=== PATIENT | female | born 1930 | race Caucasian/White ===

== ENCOUNTER 2016-11-18 14:59 | Inpatient (IN) ==
[2016-11-18] MEDS ORDERED: NS 1,000 ML IV ONE (15:14)
--- NOTE | 2016-11-18 15:30 | Diag Imaging Result Document ---
PROCEDURE NAME: HEAD W/O CONTRAST - 11/18/2016 CT OF THE HEAD: A CT dose reduction protocol was used. COMPARISON: 11/30/2015. FINDINGS: There is a new large area of encephalomalacia involving the entire right anterior cerebral artery territory compatible with a chronic infarction here. There is also worsening periventricular white matter chronic microvascular disease throughout the cerebral hemispheres. No intracranial mass or hemorrhage. Stable small lacune in the left thalamus. The skull is intact. The sinuses, mastoids, and middle ears are clear. IMPRESSION: 1. Worsening old stroke burden. 2. No acute abnormality. [facility]
[2016-11-18 15:32] LABS: ALLEN TEST YES; BLOOD TYPE ARTERIAL; DRAW SITE R RADIAL; METHB 1.2 % (0.0-1.5); O2(CT) 19.4 mL/dL (15.0-23.0); PCO2(98.6) 38 mmHg (35-45); PO2(98.6) 118 mmHg (60-100); SAMPLE BLOOD; SAO2 99.3 % (95.0-100.0); THB 14.2 g/dL (11.5-17.4); pH(98.6) 7.43 (7.35-7.45)
[2016-11-18 15:34] LABS: MODALITY CANNULA
[2016-11-18 16:10] LABS: MANUAL DIFF NEEDED? NO
[2016-11-18 16:15] LABS: BASO% 0.4 % (0.0-0.8); EOS# 0.72 X1000 (0.0-0.7); EOS% 5.8 % (0.0-10.0); HEMATOCRIT 40.3 % (37.0-47.0); HEMOGLOBIN 13.5 g/dL (12.0-16.0); IMM GRAN# 0.07 X1000 (0.0-0.04); IMM GRAN% 0.6 % (0.0-0.5); LYMPH# 2.46 X1000 (1.2-3.4); LYMPH% 19.8 % (20.5-51.1); MCHC 33.5 g/dL (33-37); MCV 92.6 FL (81-99); MONO# 1.01 X1000 (0.11-0.59); MONO% 8.1 % (1.7-9.3); MPV 11.6 FL (7.4-10.4); NEUT% 65.3 % (42.2-75.2); PLT 208 X1000 (130-400); RBC 4.35 XMIL (4.2-5.4)
[2016-11-18 16:25] LABS: PTT 25.2 Seconds (22.0-36.0)
[2016-11-18 16:34] LABS: INR 1.03; PROTIME 10.8 Seconds (9.2-11.7)
[2016-11-18 16:43] LABS: ALBUMIN 3.7 g/dL (3.5-5.0); CALCIUM 9.3 mg/dL (8.8-10.2); POTASSIUM 4.5 mmol/L (3.5-5.1); TOTAL BILIRUBIN 0.19 mg/dL (0.20-1.00); TOTAL PROTEIN 7.2 g/dL (6.3-8.3)
[2016-11-18 16:53] LABS: URINE MICRO REVIEW NEEDED? NO; URINE SOURCE CATH
--- NOTE | 2016-11-18 16:54 | Diag Imaging Result Document ---
PROCEDURE NAME: CHEST-PORTABLE - 11/18/2016 PORTABLE CHEST AT 1600 HOURS: FINDINGS: There is a left upper lobe granuloma. There is apical pleural scarring, particularly on the left. The inspiration is better than on 06/23/2016. There may be minimal lingular atelectasis. IMPRESSION: Improved inspiration. Minimal atelectasis.
[2016-11-18 17:03] LABS: BILIRUBIN URINE NEGATIVE (NEGATIVE); BLOOD URINE MODERATE (NEGATIVE); COLOR ORANGE; GLUCOSE URINE >1000 mg/dL (NEGATIVE); LEUKOCYTES URINE MODERATE (NEGATIVE); NITRITE URINE POSITIVE (NEGATIVE); PROTEIN URINE 100 mg/dL (NEGATIVE); SP GRAVITY URINE 1.021; TURBIDITY URINE HAZY (CLEAR); UROBILINOGEN URINE NORMAL (NORMAL)
[2016-11-18 17:05] LABS: UR EPITHELIAL CELLS <10 /HPF (<10); URINE BACTERIA 4+ /HPF; URINE CULTURE NEEDED? YES; URINE RBC TNTC /HPF (<10); URINE WBC TNTC /HPF (<10)
[2016-11-18] MEDS ORDERED: ROCEPHIN 1 GM/NS 1 GM/50 ML IVPB IV ONE (17:11)
--- NOTE | 2016-11-18 17:13 | PROVIDER DOCUMENTATION ---
This chart was entered by Tien Jennings Scribe, acting as scribe for Alverto Smart MD. HPI-Neurological Disorder - General Chief Complaint: Stroke-Like Symptoms Stated Complaint: STROKE LIKE SX Time Seen by Provider: 11/18/16 15:13 Source: family, EMS Allergies/Adverse Reactions: Patient Allergies Allergy/AdvReac Type Severity Reaction Status Date / Time No Known Allergies Allergy Verified 06/18/16 16:41 Home Medications: Home Medication List Medication Instructions Recorded Confirmed Last Taken Type Pravastatin Sodium 40 mg PO HS 03/06/12 06/18/16 06/18/16 History Acetaminophen [Tylenol] 650 mg PO Q6H PRN PRN #0 tablet 12/12/15 06/18/16 Unknown Rx Digoxin [Lanoxin] 125 microgm PO DAILY #0 tablet 12/12/15 06/18/16 06/18/16 Rx Levothyroxine [Synthroid] 100 microgm PO QAM #0 tablet 12/12/15 06/18/16 Rx Apixaban [Eliquis] 2.5 mg PO BID 04/18/16 06/18/16 06/18/16 History Losartan Potassium 50 mg PO DAILY 04/18/16 06/18/16 06/18/16 History Aspirin 81 mg PO DAILY #0 chewtab 04/22/16 06/18/16 06/18/16 Rx Ergocalciferol (Vitamin D2) 2,000 unit PO DAILY 06/18/16 06/18/16 06/18/16 History [Vitamin D2] Insulin Detemir [Levemir] 25 unit SQ BID 06/19/16 06/19/16 06/17/16 20:00 History Amlodipine [Norvasc] 5 mg PO DAILY #0 tablet 06/28/16 Unknown Rx Lubiprostone [Amitiza] 8 microgm PO BID #60 capsule 06/28/16 Unknown Rx Magnesium Oxide [Mag-Ox] 400 mg PO DAILY #30 tablet 06/28/16 Unknown Rx Potassium Chloride E.r. [Klor-Con] 20 meq PO DAILY #30 tablet 06/28/16 Unknown Rx - History of Present Illness-Neuro Nature of Presenting Problem: patient is a 86 y/o F that presents to the ER via EMS after being woke up from nap and family noticed she has left sided facial droop( worse then her normal). 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 No recent infection Severity: reports: moderate Onset/Duration: reports: abrupt, this afternoon (1245) Timing: reports: improving Context: reports: impaired speech, facial droop. denies: overdose, head injury Character of Altered Mental Status: reports: N/A Character of Deficits: reports: impaired speech, falling (left facial droop) Associated Symptoms: denies: headache, chest pain, fever/chills, nausea, numbness in legs/feet, vomiting Recently seen or treated by another doctor?: No Review of Systems - Adult - REVIEW OF SYSTEMS - ADULT Constitutional: denies: chills, fever Eyes: reports: no symptoms reported Ears, Nose, Mouth & Throat: denies: ear discharge, ear pain, sinus problem, throat pain, throat swelling Cardiovascular: denies: chest pain, palpitations, syncope Respiratory: denies: cough, shortness of breath, wheezing Gastrointestinal: denies: abdominal pain, nausea Genitourinary: denies: dysuria, discharge, frequency, hematuria Musculoskeletal: denies: back pain, joint pain, neck pain Integumentary: reports: no symptoms reported Neurological: reports: seizure (questionable), other (facial droop). denies: dizziness/vertigo, headache/migraines Psychiatric: reports: no symptoms reported Endocrine: reports: no symptoms reported Hematologic/Lymphatic: reports: no symptoms reported Allergic/Immunologic: reports: no symptoms reported All Other Systems: Reviewed and Negative Past History - Adult - PAST MEDICAL HISTORY-ADULT Review of Records: reports: Old Records Reviewed, Nursing Assessment Review, Medications Reviewed Cardiovascular: reports: A-Fib, HTN, hyperlipidemia Respiratory: reports: asthma Neurological: reports: CVA, stroke deficits (left sided) Endocrine/Immune: reports: Diabetes, thyroid disorder - PRIOR SURGERIES/PROCEDURES Surgical/Procedure History: reports: hysterectomy - IMMUNIZATION STATUS Childhood Immunizations: See Nurse Assessment Flu Vaccine: See Nurse Assessment - FAMILY HISTORY Family History: reviewed, not pertinent - SOCIAL HISTORY Living Situation: family Physical Exam- Neurological - Physical Exam-Neuro Initial Vital Signs Reviewed: Yes General Appearance: alert, no apparent distress Eye Exam: bilateral eye: normal inspection, PERRL HENMT: normocephalic/atraumatic, moist mucous membranes, normal ENT inspection Head Injury: no evidence of injury. negative: flap, lacerations Neck: non-tender, full range of motion, normal inspection Respiratory: lungs clear, normal breath sounds, no respiratory distress, no accessory muscle use Cardiovascular: regular rate, rhythm, no edema, no murmur Abdominal Exam: normal bowel sounds, non tender, soft, no organomegaly, no pulsatile mass Extremity: no pedal edema, no calf tenderness, normal capillary refill, pelvis stable patrol mother Exam: normal hearing, PERRL, abnormal speech (slow but does answers questions). negative: facial droop, tongue deviation to R, tongue deviation to L Motor/Sensory: positive Babinski's sign, weak motor strength LUE (previous cva) , weak motor strength LLE (previous cva). negative: sensory deficit Neurologic: motor weakness (Left sided from previous CVA). negative: aphasia, facial droop, sensory deficit Integumentary: normal color, warm/dry Psych/Mental Status: other (follows commands and answers questions). negative: anxious Progress - PLAN OF CARE/RESULTS Progress/Plan/Lab Results: Vital Signs - 8 hr 11/18/16 15:20 11/18/16 15:49 Pulse Rate 77 75 Respiratory Rate 14 20 Blood Pressure 155/83 144/67 O2 Sat by Pulse Oximetry 97 100 Laboratory Results - last 24 hr 11/18/16 11/18/16 11/18/16 15:20 15:55 15:55 WBC 12.40 H RBC 4.35 Hgb 13.5 Hct 40.3 MCV 92.6 MCH 31.0 MCHC 33.5 RDW Std Deviation 12.7 Plt Count 208 MPV 11.6 H Immature Gran % (Auto) 0.6 H Neut % (Auto) 65.3 Lymph % (Auto) 19.8 L Franklin % (Auto) 8.1 Eos % (Auto) 5.8 Baso % (Auto) 0.4 Immature Gran # (Auto) 0.07 H Neut # (Auto) 8.09 H Lymph # (Auto) 2.46 Franklin # (Auto) 1.01 H Eos # (Auto) 0.72 H Baso # (Auto) 0.05 PT INR PTT (Actin FS) Specimen Type ARTERIAL Sample Site R RADIAL pH 7.43 pCO2 38 pO2 118 H HCO3 25.7 Base Excess 1.0 Oxyhemoglobin 96.4 ABG O2 Sat (Calculated) 19.4 ABG O2 Saturation 99.3 ABG Carboxyhemoglobin 1.70 ABG Methemoglobin 1.2 Emerson Test YES A-a O2 Difference 34.0 Total Hemoglobin 14.2 Lactate 2.40 H Liter Flow 2.0 Blood Gas Modality CANNULA FiO2 % 28.0 Sodium Potassium Chloride Carbon Dioxide Anion Gap BUN Creatinine Estimated GFR/1.73 m2 BUN/Creatinine Ratio Glucose Calculated Osmolality Calcium Total Bilirubin AST ALT Alkaline Phosphatase Creatine Kinase Troponin T [id number]-[id number] Pept Total Protein Albumin Globulin Albumin/Globulin Ratio Plasma Lactate Urine Source Urine Color Urine Turbidity Urine pH Ur Specific [place] Urine Protein Ur Glucose (Stick) Ur Ketones (Stick) Urine Blood Urine Nitrite Urine Bilirubin Urobilinogen Dipstick Urine Leukocytes Urine WBC (Auto) Urine RBC (Auto) U Epithel Cells (Auto) Urine Bacteria (Auto) Plasma/Serum Ethyl Alc 11/18/16 11/18/16 11/18/16 15:55 15:55 15:55 WBC RBC Hgb Hct MCV MCH MCHC RDW Std Deviation Plt Count MPV Immature Gran % (Auto) Neut % (Auto) Lymph % (Auto) Franklin % (Auto) Eos % (Auto) Baso % (Auto) Immature Gran # (Auto) Neut # (Auto) Lymph # (Auto) Franklin # (Auto) Eos # (Auto) Baso # (Auto) PT INR PTT (Actin FS) Specimen Type Sample Site pH pCO2 pO2 HCO3 Base Excess Oxyhemoglobin ABG O2 Sat (Calculated) ABG O2 Saturation ABG Carboxyhemoglobin ABG Methemoglobin Emerson Test A-a O2 Difference Total Hemoglobin Lactate Liter Flow Blood Gas Modality FiO2 % Sodium 134 L Potassium 4.5 Chloride 96 L Carbon Dioxide 22 L Anion Gap 16 BUN 22 Creatinine 1.1 H Estimated GFR/1.73 m2 47 BUN/Creatinine Ratio 20 Glucose 349 H Calculated Osmolality 285 Calcium 9.3 Total Bilirubin 0.19 L AST 14 ALT 11 Alkaline Phosphatase 59 Creatine Kinase 88 Troponin T [id number] Pept 1269 H Total Protein 7.2 Albumin 3.7 Globulin 3.5 Albumin/Globulin Ratio 1.1 Plasma Lactate 2.7 H Urine Source Urine Color Urine Turbidity Urine pH Ur Specific [place] Urine Protein Ur Glucose (Stick) Ur Ketones (Stick) Urine Blood Urine Nitrite Urine Bilirubin Urobilinogen Dipstick Urine Leukocytes Urine WBC (Auto) Urine RBC (Auto) U Epithel Cells (Auto) Urine Bacteria (Auto) Plasma/Serum Ethyl Alc 11/18/16 11/18/16 11/18/16 15:55 15:55 16:35 WBC RBC Hgb Hct MCV MCH MCHC RDW Std Deviation Plt Count MPV Immature Gran % (Auto) Neut % (Auto) Lymph % (Auto) Franklin % (Auto) Eos % (Auto) Baso % (Auto) Immature Gran # (Auto) Neut # (Auto) Lymph # (Auto) Franklin # (Auto) Eos # (Auto) Baso # (Auto) PT 10.8 INR 1.03 PTT (Actin FS) 25.2 Specimen Type Sample Site pH pCO2 pO2 HCO3 Base Excess Oxyhemoglobin ABG O2 Sat (Calculated) ABG O2 Saturation ABG Carboxyhemoglobin ABG Methemoglobin Emerson Test A-a O2 Difference Total Hemoglobin Lactate Liter Flow Blood Gas Modality FiO2 % Sodium Potassium Chloride Carbon Dioxide Anion Gap BUN Creatinine Estimated GFR/1.73 m2 BUN/Creatinine Ratio Glucose Calculated Osmolality Calcium Total Bilirubin AST ALT Alkaline Phosphatase Creatine Kinase Troponin T 0.011 Txl-E-Orgocittxva Pept Total Protein Albumin Globulin Albumin/Globulin Ratio Plasma Lactate Urine Source CATH Urine Color ORANGE Urine Turbidity HAZY Urine pH 6.0 Ur Specific [place] 1.021 Urine Protein 100 A Ur Glucose (Stick) >1000 A Ur Ketones (Stick) NEGATIVE Urine Blood MODERATE A Urine Nitrite POSITIVE A Urine Bilirubin NEGATIVE Urobilinogen Dipstick NORMAL Urine Leukocytes MODERATE A Urine WBC (Auto) TNTC A Urine RBC (Auto) TNTC A U Epithel Cells (Auto) <10 Urine Bacteria (Auto) 4+ Plasma/Serum Ethyl Alc Orders Category Date Time Status Cardiac Monitoring DIRECTED Care 11/18/16 15:14 Active Finger Stick Blood Sugar (ED) DIRECTED Care 11/18/16 15:14 Active Saline Loc NOW Care 11/18/16 15:14 Active CHEST-PORTABLE [RAD] Stat Exams 11/18/16 15:14 Draft HEAD W/O CONTRAST [CT] Stat Exams 11/18/16 15:02 Draft ABG [RESP] Routine Lab 11/18/16 15:20 Completed ALCOHOL BLOOD Stat Lab 11/18/16 15:55 Completed CBC WITH ELECTRONIC DIFF [HEME] Stat Lab 11/18/16 15:55 Completed CK PROFILE [SP CHEM] Stat Lab 11/18/16 15:55 Completed COMPREHENSIVE METABOLIC PANEL [CHEM] Stat Lab 11/18/16 15:55 Completed LACTATE, PLASMA [CHEM] Stat Lab 11/18/16 15:55 Completed PRO B-NATRIURETIC PEPTIDE Stat Lab 11/18/16 15:55 Completed PROTIME WITH INR [COAG] Stat Lab 11/18/16 15:55 Completed PTT [COAG] Stat Lab 11/18/16 15:55 Completed TROPONIN T Stat Lab 11/18/16 15:55 Completed URINALYSIS W/POSS RFLX CULT-1 [URINALYSIS] Stat Lab 11/18/16 16:35 Completed URINE CULTURE [RM] Routine Lab 11/18/16 17:11 Received URINE DRUG SCREEN Stat Lab 11/18/16 16:35 Received 0.9% Sodium Chloride Inj [Ns] 1,000 ml Med 11/18/16 15:14 Active IV 150 mls/hr Rocephin 1 gm/Ns IV Now Med 11/18/16 17:11 Ordered CefTRIAXONE 1 GM/NS [Rocephin 1 gm/Ns] 1 gm in 50 ml IV NOW Pulse Oximetry Stat Oth 11/18/16 15:14 Active EKG [EKG] Stat Ther 11/18/16 15:14 Ordered Result Diagrams: 11/18/16 15:55 11/18/16 15:55 - EKG 1 Time of EKG reading by physician:: 15:21 EKG Read and Signed by:: Alverto Smart EKG Interpretation (*Must complete 3 of following elements*): Abnormal Rate: 73 Rhythm: a-fib QRS: LVH ST Wave: non-specific ST changes - CT/MRI 1 CT Study: Head Impression: Abnormal CT Results: worsening stroke burden per at 1514 - CONSULTS/PCP/HOSPITALIST Notification #1 *Consult/PCP/Hospitalist*: Time Discussed: 17:05 Reason/Comments: here to see patient Consult Disposition: Admit Departure - Departure Time of Disposition Decision: 17:11 DIAGNOSIS: UTI (urinary tract infection), CVA (cerebral vascular accident) Disposition: ADMITTED INPATIENT 09 Certified Medical Emergency: Emergent Condition: Stable Referrals and Follow-Ups: Emilio Gan MD [Primary Care Provider] - - Critical Care Note This patient required my direct & personal management of CC.: No Stroke tPA Guidelines - Inclusion Criteria for IV tPA 18 years old or older: Yes - Exclusion Criteria for IV tPA Evidence of intracranial hemorrhage on CT: No Presentation suggest SAH: No CT reveals defined area of hypodensity: No Evidence of AVM, neoplasm, aneurysm: No Active internal bleeding or acute trauma: No Platelet Count Less Than 100,000: No Heparin Within Last 48 HRS (PTT >Lab normal limits): No INR > 1.7 (warfarin use): No Serious Head Trauma Within Last 3 Months: No Arterial Puncture Within Last 7 Days: No Lumbar Puncture Within Last 7 Days: No Repeated systolic Blood Pressure >185 or Diastolic >110: No - Additional Exclusion Criteria for IV tPA Patient older than 80: Yes Prior stroke and diabetes: Yes Baseline NIHSS score > 25: No - Relative Contraindications to IV tPA Minor or rapidly improving stroke symptoms: Yes Major Surgery or Serious Trauma In Previous 14 Days: No AMI within 3 months: No Gastrointestinal or Urinary Tract hemorrhage in Past 21 Days: No Post - AMI pericarditis: No Blood Glucose Less Than 50 mg/dl or Greater Than 400 mg/dl: No - Consultation Candidate for:: NOT A CANDIDATE This chart was documented by the indicated scribe, (Tien Jennings, Scribe) and accurately reflects the services I performed and decisions made by , Alverto Smart MD, as attested by the provider's signature.
[2016-11-18 17:21] LABS: UR AMPHETAMINES QUAL NONE DETECTED (NONE DETECT); UR BARBITUATES QUAL NONE DETECTED (NONE DETECT); UR BENZODIAZEPIN QUAL NONE DETECTED (NONE DETECT); UR CANNABINOIDS QUAL NONE DETECTED (NONE DETECT); UR COCAINE QUAL NONE DETECTED (NONE DETECT); UR METHADONE QUAL NONE DETECTED (NONE DETECT); UR OPIATES QUAL NONE DETECTED (NONE DETECT); UR OXYCODONE QUAL NONE DETECTED (NONE DETECT); UR PCP QUAL NONE DETECTED (NONE DETECT)
[2016-11-18] MEDS ORDERED: ZOFRAN IV PRN (17:41)
[2016-11-18] MEDS ORDERED: TYLENOL PO PRN (17:52)
[2016-11-18] MEDS: PRAVACHOL PO SCH (21:51)
[2016-11-18] MEDS: AMITIZA PO SCH (21:51)
[2016-11-18] MEDS: MOTRIN PO SCH (21:51)
[2016-11-18] MEDS: ELIQUIS PO SCH (21:51)
[2016-11-18] MEDS: LEVEMIR SUBQ SCH (21:51)
[2016-11-18] MEDS: HUMULIN R SUBQ SCH (21:52)
[2016-11-19] MEDS: SYNTHROID PO SCH (06:09)
[2016-11-19] MEDS: HUMULIN R SUBQ SCH ×4 (06:09→21:53)
--- NOTE | 2016-11-19 07:03 | EKG Report ---
Test Performed on : 11/18/2016 3:21:47 PM Test Reason : AMS Blood Pressure : / mmHG Vent. Rate : 073 BPM Atrial Rate : 078 BPM P-R Int : 000 ms QRS Dur : 082 ms QT Int : 390 ms P-R-T Axes : 000 021 031 degrees QTc Int : 429 ms Atrial fibrillation. Minimal voltage criteria for LVH, may be normal variant T wave abnormality, consider anterior ischemia Abnormal ECG When compared with ECG of 30-NOV-2015 19:05, Incomplete right bundle branch block is no longer present Unconfirmed Result
[2016-11-19] MEDS: AMITIZA PO SCH ×2 (08:38→21:53)
[2016-11-19] MEDS: LANOXIN PO SCH (08:38)
[2016-11-19] MEDS: MAG-OX PO SCH (08:38)
[2016-11-19] MEDS: NORVASC PO SCH (08:38)
[2016-11-19] MEDS: ELIQUIS PO SCH ×2 (08:38→21:53)
[2016-11-19] MEDS: LEVEMIR SUBQ SCH ×2 (08:39→21:54)
[2016-11-19] MEDS: MOTRIN PO SCH ×2 (08:39→21:53)
[2016-11-19] MEDS: KLOR-CON PO SCH (08:39)
[2016-11-19] MEDS: ASPIRIN PO SCH (08:40)
[2016-11-19] MEDS: COZAAR PO SCH (08:40)
[2016-11-19] MEDS ORDERED: INSULIN PEN NEEDLES ONE (08:45)
--- NOTE | 2016-11-19 09:08 | PROGRESS NOTE ---
DATE: 11/19/2016 SUBJECTIVE: The patient is awake and alert. Sitting in bed feeding herself breakfast. She says she has no complaints or problems. The family is not present yet. OBJECTIVE: Vital Signs: 97.3, 55, 134/62. Physical Examination: Lungs: Patient's lungs are clear. Heart: Appears to be irregularly irregular, although very well rate controlled at approximately 60 beats per minute. This could be sinus with PACs or atrial fibrillation. I do not think that is really relevant though. Neurologic: Unchanged. ASSESSMENT AND PLAN: 1. The patient go for an MRI today to see if there has been an extension of her previous stroke. We will monitor for signs of seizure activity but I am very reluctant to add antiseizure medication unless we prove there is worsening brain damage from the previous stroke. 2. The patient's diabetes has been out of control at home. She is on a modified regimen here in the hospital. Fingerstick blood sugars have been written for but I do not see any on the electronic chart at the present time. We will continue to monitor. 3. Blood pressure is well controlled. 4. The patient's urinary tract infection is being treated with Rocephin. Microbiology shows a gram-negative yeyo but we do not have identification or sensitivities yet. We will make adjustments as appropriate. cc: Emilio Gan MD
--- NOTE | 2016-11-19 09:16 | HISTORY AND PHYSICAL ---
CHIEF COMPLAINT: Mental status change. HISTORY OF PRESENT ILLNESS: This 86-year-old, white female, actually participated in a home visit over the weekend. She had a stroke approximately 1 year ago which was brought on by atrial fibrillation. She suffered a complete left hemiplegia. Over the weekend, I went and visited her because she had seemed to regain some movement of her left hand and arm, which was not present at the time of the stroke nor for the last few months. We were going to restart physical therapy. At approximately 2:30 on the day of admission, the patient began shaking and then became less responsive with slurred speech. She was brought to the emergency room. Evaluation there showed a significant urinary tract infection as well as changes on her CT scan, which may indicate worsening of the infarct area with larger areas in the brain of encephalomalacia. She is admitted for workup. PAST MEDICAL HISTORY: 1. Cerebrovascular accident. 2. Diabetes mellitus requiring insulin. 3. Atrial fibrillation. Presently on anticoagulation. 4. Hypertension. 5. Hyperlipidemia. 6. Remote history of asthma. 7. History of constipation. PAST SURGICAL HISTORY: 1. Knee surgery. 2. Hysterectomy. 3. Thyroidectomy. ALLERGIES: No known drug allergies. SOCIAL HISTORY: The patient lives at her home, basically in a hospital bed with around the clock caretakers. As stated earlier, she was scheduled to restart physical therapy for improvement in the left hand. She is bed ridden. There is no tobacco or alcohol history. She does not use any controlled substances. FAMILY HISTORY: Noncontributory. REVIEW OF SYSTEMS: The patient is unable to answer, but having seen the patient over the weekend, she has not been having any difficulty with mentation. She has been feeding herself. She was having some purposeful movement of the left hand and some reactionary use of the left arm as well. She was not able to regain any movement of her left leg that I am aware of. She had not had any fever or chills. Her weight has been stable. There was no shortness of breath. No palpitations reported and no other change in mental status prior to the admission. PHYSICAL EXAMINATION: GENERAL: She is a well-developed, white female, in no acute distress. She seems to be at her baseline level of alertness and responsiveness which usually entails appropriate verbal responses and orientation, albeit slow in her responses. HEENT: Unremarkable. NECK: No bruits noted. CARDIOVASCULAR: At the time of my examination, she appeared to be regular. I did not see any EKG, but it did not sound like she was in atrial fibrillation at the time of my examination. This is similar to my examination when she was at home a few days ago. ABDOMEN: Bowel sounds are present. She is soft, nontender, not distended. EXTREMITIES: There is some dependent edema, but it is mild. NEUROLOGICAL: The patient is able to squeeze a little bit with her left hand. I do not see any purposeful movement of the arm her speech is clear, although responses are slow. LABORATORY: The patient's white count was 12,400, electrolytes were normal. Oxygenation was good. Creatinine was 1.1. Glucose was high at 349. Urine showed too numerous to count white cells and red cells, 4+ bacteria and positive nitrite. Urine drug screen was negative. ASSESSMENT AND PLAN: 1. The patient is admitted to the hospital on the with a diagnosis of possible extension of cerebrovascular accident. 2. The patient's atrial fibrillation appears to be controlled. She is intermittently in sinus rhythm according to my exam. We will continue all present medications including anticoagulation. 3. The patient's diabetes has been out of control. We made an adjustment during her home visit a few days ago. She should be taking Levemir 24 in the morning and 12 in the evening. We will continue this and monitor blood sugars. See how that works out. 4. The patient has urinary tract infection. Will be sent for culture. She was started empirically on Rocephin. 5. The patient's overall mentation level has seemed to recover to baseline. 6. Shaking episode prior to admission could be explained either by a rigor from her urinary tract infection or from seizure activity related to previous brain infarction. I plan to go a bit deeper into her neurological status with an MRI today and see if any further action is appropriate. CODE LEVEL: No code blue level 1. cc: Emilio Gan MD
--- NOTE | 2016-11-19 10:59 | Diag Imaging Result Doc PS360 ---
MRI BRAIN W W/O CONTRAST - 11/18/2016 INDICATION: Stroke COMPARISON: Head CT 11/18/2016 FINDINGS: There is a large area of atrophy and abnormal signal throughout the right frontal-parietal lobes. This follows closely with the anterior cerebral artery territory. The signal is hyperintense on T2 and FLAIR weighted images, with some prominent areas of cortical hyperintensity on the T1 images involving both the frontal and parietal lobes. 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 There is increased contrast enhancement of the cortex in this region most compatible with luxury perfusion. No mass effect or acute hemorrhage. No restricted diffusion. There is mild worsening in the periventricular and pontine white matter chronic microvascular disease. IMPRESSION: Worsening, subacute to chronic stroke burden. This is most notable in the right anterior cerebral artery territory. No mass effect or hemorrhage. Electronically signed by Alvaro Valadez 11/19/2016 10:57 AM
[2016-11-19] MEDS ORDERED: ROCEPHIN 1 GM/NS 1 GM/50 ML IVPB IV SCH (18:00)
[2016-11-19] MEDS: PRAVACHOL PO SCH (21:53)
[2016-11-20] MEDS: SYNTHROID PO SCH (06:53)
[2016-11-20] MEDS: HUMULIN R SUBQ SCH ×2 (06:57→11:46)
[2016-11-20] MEDS: AMITIZA PO SCH (09:52)
[2016-11-20] MEDS: LANOXIN PO SCH (09:53)
[2016-11-20] MEDS: MOTRIN PO SCH (09:54)
[2016-11-20] MEDS: MAG-OX PO SCH (09:54)
[2016-11-20] MEDS: KLOR-CON PO SCH (09:54)
[2016-11-20] MEDS: COZAAR PO SCH (09:55)
[2016-11-20] MEDS: NORVASC PO SCH (09:55)
[2016-11-20] MEDS: ASPIRIN PO SCH (09:55)
[2016-11-20] MEDS: ELIQUIS PO SCH (10:02)
[2016-11-20] MEDS: LEVEMIR SUBQ SCH (10:03)
[2016-11-20 15:10] VITALS: BP 118/62
[2016-11-20] MEDS ORDERED: KEFLEX PO SCH (21:00)
--- NOTE | 2016-11-21 05:40 | DISCHARGE SUMMARY ---
ADMISSION DATE: 11/18/2016 DISCHARGE DATE: 11/20/2016 DISCHARGE DIAGNOSES: 1. Acute mental status change. 2. History of cerebrovascular accident with left-sided hemiparesis. 3. Urinary tract infection. 4. Diabetes mellitus, poorly controlled. 5. Hypertension. 6. Chronic atrial fibrillation with anticoagulation. HOSPITAL COURSE: This 86-year-old, white female is basically bedridden at home due to left hemiparesis from an atrial fibrillation-induced cerebrovascular accident. She had recently been evaluated at home for further physical therapy and was brought to the emergency department after having an episode of severe shaking with disorientation. It was felt that this represented a seizure which may be related to her cerebrovascular disease but could have just as well been a rigor from bacterial urinary tract infection. The patient recovered her sensorium fairly quickly even being fairly normal in the emergency room. She was started on empiric antibiotics and further study was made of her brain. A CT scan was performed, which seemed to show extension of cerebrovascular disease. MRI confirmed this but there was no evidence that there was an actual acute infarct that could have accounted for her difficulty. This very well may have been the case, but we were unable to prove that. She also could very well have had a seizure from the degree of brain damage that she suffered from previous stroke. I was very reluctant to start her on any new medication as a result of her already huge burden of medications necessary for home care. We will re-evaluate this if the problem persists. At the present time, if indeed she had a seizure, I think it was just as equally likely to have been caused by her infection than anything else. The patient's urine grew back Klebsiella pneumoniae and significant colony counts. There was no significant resistance pattern. The patient was treated with IV antibiotics. We then changed over to Keflex on the day of discharge, which should be adequate given the culture results. The remainder of the patient's home medications will remain unchanged. We had recently made a change in the patient's insulin regimen making her Levemir 24 in the morning and 12 at night. We have not been able to determine whether this is going to be an adequate change or not but should have followup through home health. The patient is discharged home. She will need ambulance transport and we can resume home health and home physical therapy orders. cc: Emilio Gan MD
== END 2016-11-20 16:42 | disposition home or self-care (01) ==
LOC: ED 14:59 → 3N 19:28 → UNDODISIN 11-20 13:03
PROVIDERS: ADMIT Internal Medicine; ATTEND Internal Medicine